=== PATIENT | female | born 1950 | race Caucasian/White ===

== ENCOUNTER 2023-07-18 16:28 | Inpatient (IN) | payer OTHER ==
[~2023-07-18] VITALS: Ht 152.4 cm; Wt 76.2 kg
[2023-07-18 16:39] VITALS: BP 189/75; PULSE 71; RESP 19; TEMP 97.7; O2SAT 97
[2023-07-18] MEDS ORDERED: ACETAMINOPHEN EXTRA STRENGTH 500 MG TAB PO ONE (17:25)
[2023-07-18 17:55] LABS: BASOPHILS # (AUTO) 0.1 K/uL (0.00-0.22); BASOPHILS % (AUTO) 0.9 % (0.0-2.0); EOSINOPHILS # (AUTO) 1.1 K/uL (0-0.4); EOSINOPHILS % (AUTO) 11.3 % (0.0-4.0); HEMATOCRIT 33.6 % (36-48); HEMOGLOBIN 11.3 g/dL (12.0-16.0); LYMPHOCYTES # (AUTO) 3.4 K/uL (2.5-16.5); LYMPHOCYTES % (AUTO) 34.2 % (20.5-51.1); MEAN CORPUSCULAR HEMOGLOBIN 29 pg (27-31); MEAN CORPUSCULAR HGB CONC 34 g/dL (33-37); MEAN CORPUSCULAR VOLUME 86.7 fL (80-94); MONOCYTES # (AUTO) 0.9 K/uL (0.8-1.0); MONOCYTES % (AUTO) 9.3 % (1.7-9.3); NEUTROPHILS # (AUTO) 4.4 K/uL (1.8-7.7); NEUTROPHILS % (AUTO) 44.3 % (42.2-75.2); PLATELET COUNT (AUTO) 335 K/uL (140-450); RED BLOOD CELL COUNT(AUTO) 3.88 MIL/uL (4.20-5.40); RED CELL DISTRIBUTION WIDTH 13.9 % (11.6-13.7)
[2023-07-18 18:13] LABS: ALANINE AMINOTRANSFERASE 30 U/L (12-78); ALBUMIN 3.8 g/dL (3.4-5.0); ALKALINE PHOSPHATASE 201 U/L (50-136); ANION GAP 11.6 (8-16); ASPARTATE AMINOTRANSFERASE 33 U/L (15-37); CALCIUM 9.1 mg/dL (8.5-10.1); CARBON DIOXIDE 28.1 mmol/L (21-32); CHLORIDE 103 mmol/L (98-107); GLUCOSE 109 mg/dL (74-106); POTASSIUM 3.7 mmol/L (3.5-5.1); SODIUM SERUM 139 mmol/L (136-145); TOTAL BILIRUBIN 0.3 mg/dL (0.0-1.0); TOTAL PROTEIN, SERUM 8.1 g/dL (6.4-8.2); UREA NITROGEN, BLOOD 16 mg/dL (7-18)
[2023-07-18 18:18] LABS: LACTIC ACID 0.8 mmol/L (0.4-2.0)
[2023-07-18] MEDS ORDERED: VANCOMYCIN 1,000 MG in DEXTROSE 5% 250 ML IV ONE (20:00)
[2023-07-18] MEDS ORDERED: VANCOMYCIN 1,000 MG VIAL ONE (20:18)
[2023-07-18 20:30] VITALS: O2SAT 99
[2023-07-18] MEDS ORDERED: ONDANSETRON 4 MG/2 ML VIAL IVP PRN (21:40)
[2023-07-18] MEDS ORDERED: MAGNESIUM OXIDE 400 MG TAB PO PRN (21:40)
[2023-07-18] MEDS ORDERED: KCL 20 MEQ IN 100 mL PREMIX 200 ML IV PRN (21:40)
[2023-07-18] MEDS ORDERED: HYDROcodone/APAP 5/325 MG 1 TAB TAB PO PRN (21:40)
[2023-07-18] MEDS ORDERED: MAG SULF 2000 MG/WATER PREMIX 50 ML IV PRN (21:40)
[2023-07-18] MEDS ORDERED: VANCOMYCIN PER PHARMACY MC PRN (21:40)
[2023-07-18] MEDS ORDERED: POTASSIUM CHLORIDE 10 MEQ TABER PO PRN (21:40)
[2023-07-18] MEDS ORDERED: ACETAMINOPHEN 325 MG TAB PO PRN (21:40)
[2023-07-18 22:20] VITALS: BP 158/68; PULSE 66; RESP 18; TEMP 96.7; O2SAT 99
[2023-07-18] MEDS ORDERED: cefTRIAXone 1,000 MG VIAL ONE (22:42)
[2023-07-18] MEDS: NACL 0.9% 1,000 ML IV SCH (22:48)
[2023-07-18] MEDS ORDERED: VANCOMYCIN HCL 1.25 GM in DEXTROSE 5% 250 ML IV ONE (23:00)
[2023-07-19 04:00] VITALS: BP 147/53; PULSE 60; RESP 17; TEMP 97.5
[2023-07-19 06:08] LABS: BASOPHILS # (AUTO) 0.1 K/uL (0.00-0.22); BASOPHILS % (AUTO) 0.9 % (0.0-2.0); EOSINOPHILS % (AUTO) 12.1 % (0.0-4.0); HEMATOCRIT 30.6 % (36-48); HEMOGLOBIN 10.5 g/dL (12.0-16.0); LYMPHOCYTES # (AUTO) 2.8 K/uL (2.5-16.5); LYMPHOCYTES % (AUTO) 32.9 % (20.5-51.1); MEAN CORPUSCULAR HEMOGLOBIN 29 pg (27-31); MEAN CORPUSCULAR HGB CONC 34 g/dL (33-37); MEAN CORPUSCULAR VOLUME 85.9 fL (80-94); MONOCYTES % (AUTO) 11.6 % (1.7-9.3); NEUTROPHILS # (AUTO) 3.6 K/uL (1.8-7.7); NEUTROPHILS % (AUTO) 42.5 % (42.2-75.2); PLATELET COUNT (AUTO) 311 K/uL (140-450); RED BLOOD CELL COUNT(AUTO) 3.57 MIL/uL (4.20-5.40); RED CELL DISTRIBUTION WIDTH 13.6 % (11.6-13.7); WHITE BLOOD COUNT (AUTO) 8.5 K/uL (4.8-10.8)
[2023-07-19 06:30] LABS: PHOSPHORUS 3.5 mg/dL (2.5-4.9)
[2023-07-19 06:32] LABS: ANION GAP 10.9 (8-16); CALCIUM 8.2 mg/dL (8.5-10.1); CARBON DIOXIDE 26.5 mmol/L (21-32); CHLORIDE 107 mmol/L (98-107); CREATININE 0.8 mg/dL (0.6-1.3); GLUCOSE 102 mg/dL (74-106); POTASSIUM 3.4 mmol/L (3.5-5.1); SODIUM SERUM 141 mmol/L (136-145); UREA NITROGEN, BLOOD 10 mg/dL (7-18)
[2023-07-19 08:00] VITALS: BP 149/55; PULSE 64; RESP 16; TEMP 98.3; O2SAT 98
[2023-07-19] MEDS: VANCOMYCIN 500 MG in DEXTROSE 5% 100 ML IV SCH ×2 (10:29→22:37)
[2023-07-19] MEDS: NACL 0.9% 1,000 ML IV SCH ×2 (11:03→22:40)
[2023-07-19 20:00] VITALS: BP 162/72; PULSE 67; RESP 18; TEMP 97.5; O2SAT 94
[2023-07-20] MEDS: NACL 0.9% 1,000 ML IV SCH ×2 (01:51→23:40)
[2023-07-20 04:00] VITALS: BP 151/47; PULSE 59; RESP 18; TEMP 97.5
[2023-07-20 06:03] LABS: BASOPHILS # (AUTO) 0.1 K/uL (0.00-0.22); BASOPHILS % (AUTO) 0.9 % (0.0-2.0); EOSINOPHILS # (AUTO) 0.8 K/uL (0-0.4); EOSINOPHILS % (AUTO) 8.5 % (0.0-4.0); HEMATOCRIT 32.5 % (36-48); LYMPHOCYTES # (AUTO) 2.8 K/uL (2.5-16.5); LYMPHOCYTES % (AUTO) 30.9 % (20.5-51.1); MEAN CORPUSCULAR HEMOGLOBIN 30 pg (27-31); MEAN CORPUSCULAR HGB CONC 34 g/dL (33-37); MEAN CORPUSCULAR VOLUME 86.9 fL (80-94); MONOCYTES # (AUTO) 0.9 K/uL (0.8-1.0); MONOCYTES % (AUTO) 9.9 % (1.7-9.3); NEUTROPHILS # (AUTO) 4.6 K/uL (1.8-7.7); NEUTROPHILS % (AUTO) 49.8 % (42.2-75.2); PLATELET COUNT (AUTO) 296 K/uL (140-450); RED BLOOD CELL COUNT(AUTO) 3.74 MIL/uL (4.20-5.40); RED CELL DISTRIBUTION WIDTH 13.9 % (11.6-13.7); WHITE BLOOD COUNT (AUTO) 9.1 K/uL (4.8-10.8)
[2023-07-20 06:17] LABS: ANION GAP 11.8 (8-16); CALCIUM 8.5 mg/dL (8.5-10.1); CARBON DIOXIDE 27.1 mmol/L (21-32); CHLORIDE 107 mmol/L (98-107); CREATININE 0.9 mg/dL (0.6-1.3); GLUCOSE 103 mg/dL (74-106); POTASSIUM 3.9 mmol/L (3.5-5.1); SODIUM SERUM 142 mmol/L (136-145); UREA NITROGEN, BLOOD 16 mg/dL (7-18)
[2023-07-20 06:29] LABS: PHOSPHORUS 3.3 mg/dL (2.5-4.9)
[2023-07-20 08:00] VITALS: BP 118/70; PULSE 62; PULSE 82; RESP 16; RESP 18; TEMP 98.5; O2SAT 99
[2023-07-20] MEDS: VANCOMYCIN 500 MG in DEXTROSE 5% 100 ML IV SCH ×2 (10:34→22:23)
[2023-07-20 16:00] VITALS: BP 140/71; PULSE 69; RESP 17; TEMP 98.1
[2023-07-20 20:00] VITALS: BP 159/85; PULSE 73; RESP 18; TEMP 97; O2SAT 96
[2023-07-21 04:00] VITALS: BP 164/79; PULSE 65; RESP 18; TEMP 97.4; O2SAT 97
[2023-07-21 05:23] LABS: BASOPHILS # (AUTO) 0.1 K/uL (0.00-0.22); BASOPHILS % (AUTO) 0.7 % (0.0-2.0); EOSINOPHILS # (AUTO) 1.3 K/uL (0-0.4); EOSINOPHILS % (AUTO) 11.9 % (0.0-4.0); HEMATOCRIT 32.3 % (36-48); HEMOGLOBIN 10.9 g/dL (12.0-16.0); LYMPHOCYTES # (AUTO) 3.4 K/uL (2.5-16.5); LYMPHOCYTES % (AUTO) 31.8 % (20.5-51.1); MEAN CORPUSCULAR HEMOGLOBIN 30 pg (27-31); MEAN CORPUSCULAR HGB CONC 34 g/dL (33-37); MEAN CORPUSCULAR VOLUME 87.1 fL (80-94); MONOCYTES # (AUTO) 1.2 K/uL (0.8-1.0); MONOCYTES % (AUTO) 11.4 % (1.7-9.3); NEUTROPHILS # (AUTO) 4.7 K/uL (1.8-7.7); NEUTROPHILS % (AUTO) 44.2 % (42.2-75.2); PLATELET COUNT (AUTO) 300 K/uL (140-450); RED BLOOD CELL COUNT(AUTO) 3.71 MIL/uL (4.20-5.40); RED CELL DISTRIBUTION WIDTH 13.7 % (11.6-13.7); WHITE BLOOD COUNT (AUTO) 10.7 K/uL (4.8-10.8)
[2023-07-21 05:56] LABS: ANION GAP 12.7 (8-16); CALCIUM 8.6 mg/dL (8.5-10.1); CARBON DIOXIDE 25.4 mmol/L (21-32); CHLORIDE 107 mmol/L (98-107); GLUCOSE 102 mg/dL (74-106); MAGNESIUM 1.9 mg/dL (1.8-2.4); PHOSPHORUS 3.8 mg/dL (2.5-4.9); POTASSIUM 4.1 mmol/L (3.5-5.1); SODIUM SERUM 141 mmol/L (136-145); UREA NITROGEN, BLOOD 18 mg/dL (7-18)
[2023-07-21 08:00] VITALS: BP 156/53; PULSE 65; RESP 18; TEMP 98; O2SAT 94
[2023-07-21 09:34] VITALS: PULSE 65; RESP 18; O2SAT 99
[2023-07-21] MEDS: VANCOMYCIN 500 MG in DEXTROSE 5% 100 ML IV SCH (10:09)
[2023-07-21] MEDS: NACL 0.9% 1,000 ML IV SCH (12:10)
[2023-07-21] MEDS ORDERED: GAUZE TP SCH (13:00)
[2023-07-21] MEDS ORDERED: CLIN300C2 PO (15:43)
[2023-07-21 16:00] VITALS: BP 171/73; PULSE 70; RESP 18; TEMP 98.8; O2SAT 99
[2023-07-21] MEDS ORDERED: hydrALAZINE 20 MG/ML VIAL IVP PRN (16:20)
[2023-07-21] MEDS ORDERED: amLODIPine 5 MG TAB PO SCH (18:38)
[2023-07-21 20:30] VITALS: BP 142/93; PULSE 64; RESP 18; TEMP 98.7; O2SAT 97
== END 2023-07-21 21:00 | disposition home or self-care (01) | DRG 603 ==
LOC: MED 16:28 → MTU 21:39
PROVIDERS: ADMIT Hospitalist; ATTEND Hospitalist
DX: L03.116 Cellulitis of left lower limb (principal); L97.929 Non-pressure chronic ulcer of unspecified part of left lower leg with unspecified severity; E78.5 Hyperlipidemia, unspecified; I10 Essential (primary) hypertension; E03.9 Hypothyroidism, unspecified
CPT/HCPCS: 36415; 73701; 80048; 80053; 80202; 83605; 83735; 84100; 85025; 85651; 86140; 87040; 87081; 93971; 96365; 99285; J0360; J0696; J1644; J3370; J7060; Q0092; Q9967